=== PATIENT | male | born 1940 | race Caucasian/White ===

== ENCOUNTER 2018-01-28 11:38 | Inpatient (IN) ==
--- NOTE | 2018-01-26 17:19 | Discharge Summary ---
<Shaneka Dsouza - Last Filed: 01/26/18 17:17> Orders not resulted at time of discharge: Pending orders 01/28/18 10:20 XR knee RT limited 1-2V [XR] Routine H/H [Hemoglobin and Hematocrit] [HEME] Routine Date of Encounter: 01/26/18 - Discharge Diagnosis (1) Arthritis of knee, right Priority: Primary Status: Acute (2) Status post total knee replacement, right Priority: Primary Status: Acute - Hospital Course Hospital course: Mr. De León is a 77 year old male - Time Spent with Patient Total time spent providing and/or coordinating discharge services: - Discharge Medications Home Medications: Aspirin Enteric Coated [Aspirin EC] 325 mg PO BID #20 01/26/18 [Rx] OxyCODONE Immed Rel [Roxicodone 5 MG] 5 mg PO Q6HR PRN 7 Days #28 tablet [Rx] Aspirin 81 mg PO DAILY 01/28/18 [History] Dutasteride 0.5 mg PO DAILY 01/28/18 [History] Pantoprazole Sodium 40 mg PO DAILY 01/28/18 [History] Tamsulosin [Flomax] 0.4 mg PO DAILY 01/28/18 [History] Allergies/Adverse Reactions: 3 Allergy/AdvReac Type Severity Reaction Status Date / Time No Known Allergies Allergy Verified 01/28/18 12:04 Primary care physician: Herbie Garcia MD - Patient Status Disposition: Transfer Inpatient Rehab Fac Condition: Good - Discharge Instructions Follow Up With: Herbie Garcia MD [Primary Care Provider] - <Vishnu Brown - Last Filed: 01/30/18 08:08> Orders not resulted at time of discharge: Pending orders 01/28/18 10:20 XR knee RT limited 1-2V [XR] Routine H/H [Hemoglobin and Hematocrit] [HEME] Routine 01/28/18 13:07 EKG [ECG 12 lead ECG] [ECG] Stat Date of Encounter: 01/30/18 Time of Encounter: 08:08 - Discharge Diagnosis (1) Obesity (BMI 30.0-34.9) Priority: Secondary Status: Chronic (2) Status post total knee replacement, right Priority: Primary Status: Acute (3) Arthritis of knee, right Priority: Primary Status: Chronic (4) Kidney disease, chronic, stage II (mild, 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 De León is a 77 year old male Status post right total knee replacement The patient had an uneventful postoperative course. They received antibiotics and physical therapy and were discharged in stable condition. There will follow -up in the office in 2 weeks. - Time Spent with Patient Total time spent providing and/or coordinating discharge services: Primary care physician: Herbie Garcia MD - Patient Status Functional capacity at discharge: uses cane/walker Overall status at discharge: patient is progressing back to baseline
[2018-01-28] MEDS ORDERED: Famotidine 20 MG/2 ML VIAL IVP ONE (12:23)
[2018-01-28] MEDS ORDERED: Ringers Solution, Lactated 1,000 ML IVC SCH ×3 (12:30→16:36)
[2018-01-28] MEDS ORDERED: CeFAZolin Syr 2,000MG/20 ML 2,000 MG/20 ML SYRINGE IVPB ONE (12:38)
[2018-01-28] MEDS ORDERED: Lidocaine -MPF 1% 2 ML VIAL ID ONE (12:38)
--- NOTE | 2018-01-28 13:16 | History & Physical Report ---
Date of Encounter: 01/28/18 Time of Encounter: 13:16 24 Hour HP Update - Instructions Instructions: If the History and Physical is less than 30 days old and was completed prior to A.M. admission and or procedure and has NOT been updated on calendar day of procedure please complete this update prior to performing procedure. - Update Patient reports changes in Medical Condition: No Changes in examination, assessment, or condition: No Changes in Medication: No Preop tests/diagnostics Reviewed: Yes Surgery Remains Indicated: Yes Consent for Planned Operative Procedure(s) Verified: Yes - Pre-Operative Checklist Preoperative Checklist Indicated: No Prophylactic Antibiotic Ordered: Yes Is VTE Prophylaxis Indicated?: Yes
--- NOTE | 2018-01-28 13:37 | Anesthesia Evaluation PreOp ---
Date of Encounter: 01/28/18 Time of Encounter: 13:25 - Past History Planned Operation: Rt TKA Cardiac History: Denies any Significant Hx Pulmonary History: Denies Any Significant HX NAIL SETTER History: Denies Any Significant HX Other Medical History: Renal (CKD), Other (BPH) Anesthesia History: No Prior Anesthetic Complications Alcohol Use: rarely Drug use: none Medications and Allergies Aspirin Enteric Coated [Aspirin EC] 325 mg PO BID #20 01/26/18 [Rx] OxyCODONE Immed Rel [Roxicodone 5 MG] 5 mg PO Q6HR PRN 7 Days #28 tablet [Rx] Aspirin 81 mg PO DAILY 01/28/18 [History] Dutasteride 0.5 mg PO DAILY 01/28/18 [History] Pantoprazole Sodium 40 mg PO DAILY 01/28/18 [History] Tamsulosin [Flomax] 0.4 mg PO DAILY 01/28/18 [History] 3 Allergy/AdvReac Type Severity Reaction Status Date / Time No Known Allergies Allergy Verified 01/28/18 12:04 - Meds/Allergy Pre-op Review Medications Reviewed: Yes Allergies Reviewed: Yes Beta Blockers on Current Med List: No Anesthesia Results - Labs Laboratory Tests 01/22/18 01/22/18 14:25 14:25 Hgb 16.4 Hct 48.3 Plt Count 376 Sodium 135 L Potassium 4.2 BUN 23 Creatinine 1.32 H - Imaging EKG: report reviewed (SR) Anesthesia Exam O2 Sat Height 1.85 m Height 1.85 m Height 1.85 m Weight 116.12 kg Weight 116.12 kg Weight 116.12 kg O2 Sat by Pulse Oximetry 95 O2 Sat by Pulse Oximetry 95 Vital Signs Temp Pulse Resp BP Pulse Ox 97.8 F 73 18 140/88 95 01/28/18 11:56 01/28/18 11:56 01/28/18 11:56 01/28/18 11:56 01/28/18 11:56 Height: 6'1 Weight: 256 lbs NPO (# of Hours): MN Pain Scale: 0 - HEENT Pupil (Motor): Pupils equal, EOMI Mallampati: II Oral Opening: Greater than 3 - NAIL SETTER LOC: Oriented NAIL SETTER Motor: Normal RUE, Normal LUE, Normal RLE, Normal LLE, Normal Face NAIL SETTER Sensory: Normal: RUE, LUE, RLE, LLE, Face - Cardiac Rhythm: Regular Murmur: None JVD: No Carotid Bruit: No - Pulmonary Breath Sounds: bilateral Clear Respiratory Effort: Symmetrical Anesthesia Assess/Plan ASA Score: 2 Modified Whitney Scale for Level of Consciousness: Cooperative, oriented, and tranquil Anesthetic Plan: Regional, MAC Monitoring Plan: Standard Monitors Recovery Plan: PACU (Discussed SAB with Adductor Canal Block, possible GA, agrees to proceed)
[2018-01-28] MEDS ORDERED: *HR* Midazolam HCl 2 MG/2 ML VIAL ONE (13:49)
[2018-01-28] MEDS ORDERED: *HR* FentaNYL (PF) 100 MCG/2 ML VIAL ONE (13:49)
[2018-01-28] MEDS ORDERED: Lidocaine -MPF 2% 2 ML VIAL ONE (13:49)
[2018-01-28] MEDS ORDERED: ROPIVACAINE HCL/PF 0.5% 30 ML VIAL ONE (13:59)
[2018-01-28] MEDS ORDERED: Propofol 500 MG/50 ML INFUS..BTL ONE (14:14)
[2018-01-28] MEDS ORDERED: Ondansetron 4 MG/2 ML VIAL IVP ONE (14:25)
[2018-01-28] MEDS ORDERED: *HR* Meperidine 25 MG/ML SYRINGE IVP PRN (14:25)
[2018-01-28] MEDS ORDERED: *HR* OxyCODONE Immed Rel 5 MG TABLET PO PRN (14:25)
[2018-01-28] MEDS ORDERED: MORPHINE SUL Oral CONC 10 MG/0.5 ML ORAL.SYG SL PRN (14:25)
[2018-01-28] MEDS ORDERED: Naloxone 0.4 MG/ML INJ IVP PRN ×2 (14:25→16:36)
[2018-01-28] MEDS ORDERED: Albuterol 2.5 MG/3 ML NEBULIZER IH ONE (14:25)
--- NOTE | 2018-01-28 14:34 | Anesthesia Procedures ---
Date of Encounter: 01/28/18 Time of Encounter: 13:35 Procedures: Anesthesia - Epidural/Spinal Patient ID/Chart reviewed: Yes Patient examined: Yes Consent Obtained: Yes Supplemental Oxygen: Nasal Cannula (2) Sedation: Versed (mg): 2 Site Prep: Aseptic Technique, Sterile prep and drape Patient position: upright Local Anesthetic: Lidocaine 1% Interspace Used: L2-L3 Loss of Resistance (DICK): No Blood: No CSF: Yes Paresthesia: No Spinal Needle Gauge: 24 Spinal Dose: 10mg isobaric marcaine, 0.3mg duramorph Procedure: Patient sitting sterile P&D, midline L2-3 plus CSF, 24 gauge needle patient tolerated procedure well - Nerve Block Procedure Date: 01/28/18 Time: 14:00 Pre-op Diagnosis: Rt Knee OA Surgical Procedure: Rt TKA Checklist: Correct Patient Identifier Correct side: Right Blood Thinner: No Monitor Applied: EKG, BP, Pulse Oximetry Supplemental Oxygen via Nasal Cannula (L/min): 2 Sedation: Versed (mg): 2 Indication: Post Op Analgesia Pre-op Neuro Deficits: No Block Type: Other (Adductor Canal Block) Catheter placed: No Depth at skin (cm): 4 Sterile Technique: Yes Ultrasound used: Yes Anatomy identified: Yes Visual spread of Local: Yes Neuro Stimulation: No Smooth Injection of Local: Yes Pain with Injection of Local: No Prep: Chlorhexadine Needle: 21 x 100 mm Stimuplex Local: Ropivacaine Volume (cc): 30 Number of Attempts: 1 Complications: None/effective block Vitals: Vital Signs/O2 Sat/Glucose, Most Current Temp Pulse Resp BP Pulse Ox 01/28/18 14:15 58 16 121/72 94 01/28/18 14:10 64 14 121/74 96 01/28/18 14:05 67 12 118/73 96 01/28/18 14:00 66 15 118/73 97 01/28/18 13:50 62 14 161/92 96 01/28/18 12:57 97.8 F 73 18 140/88 95 01/28/18 11:56 97.8 F 73 18 140/88 95
--- NOTE | 2018-01-28 15:16 | Orthopedic Operative Note ---
Date of procedure: 01/28/18 Pre-op diagnosis: Right knee arthritis Post-op diagnosis: same Procedure: Procedure: Right robotic-assisted Total knee replacement Estimated blood loss: 200 cc Hardware: Metal and polyethylene replacement. [place] Femur: 6 Tibia: 6 TS insert: 9 Patella: 39 Exam Under anesthesia: 5 degrees hyperextension 5 degree varus as calculated by the robot full flexion and no instability Procedural Notes: Grade 3 arthritic changes undersurface of patella femoral condyle. Operative procedure: The patient was brought to the operating room and placed on the operating room table. After general anesthesia was administered the operative knee was examined. Findings were noted in the exam under anesthesia. The operative extremity was prepped and draped in sterile surgical fashion. The patient received IV antibiotics prior to skin incision. A standard midline incision was made centered over the patella. The incision was made through the skin and subcutaneous tissue. A medial parapatellar tendon approach was performed. Care was taken to preserve tissue along the medial aspect of the patella. And to protect the patella tendon. The deep MCL was released off the medial tibia. The infra patella fat pad was excised. The patella was everted and cut was made at the level of the insertion of the quadriceps and patella tendon. The patella was sized the guide was seated and the lug holes are drilled. Knee was brought into flexion. Patient noted to have grade 3 arthritic changes undersurface of patella medial femoral condyle. Steinmann pins were placed in the tibia and the femur for the tibial and femoral arrays respectively. Checkpoints were also placed in the tibia and the femur for calculation purposes. The knee including the femur and the tibial registered. Osteophytes , ACL and PCL were excised at this point. Extension and flexion were assessed with a valgus stress components were adjusted on the computer to balance the knee. Femoral cuts were made first with robotic assistance, these included the anterior cut posterior cuts chamfer cuts. Tibial cut was then performed with robotic assistance as well. Bone fragments were removed, as well as the medial and lateral meniscus. The size 6 femoral guide was seated box cut was made lug holes are drilled. The size 6 tibial tray was seated and prepared with the fin cutter. Trial reduction with the 9 TS Justyna revealed extension of 0 degree and 5 degree varus full flexion. No varus valgus instability. Trial reduction revealed excellent patella tracking. All trial components were removed all bony surfaces were irrigated. The Tibia was seated followed by the femur, The Justyna size 9 was seated and secured patella. Patient had similar findings for motion and stability. The knee was closed by the PA. The knee was then irrigated out with 2 L of pulse irrigation. The extensor mechanism was closed with #2 FiberWire suture and #2 PDS suture. The subcutaneous tissue was then irrigated and closed deep with #1 PDS suture superficially with 0 PDS suture and skin was closed with zip tie The patient was then placed in a sterile dressing and a postoperative brace extubated and transferred to recovery room in stable condition. Anesthesia: spinal Surgeon: Vishnu Brown Was there an optometry assistant present: No Estimated blood loss (cc): 200 Condition: stable Disposition: PACU
[2018-01-28 16:10] LABS: Hematocrit 44.5 % (37.5-50.1)
[2018-01-28 16:13] LABS: Hemoglobin 14.8 g/dL (12.9-16.9)
[2018-01-28] MEDS ORDERED: traMADol 50 MG TABLET PO PRN (16:36)
[2018-01-28] MEDS ORDERED: MOM Conc 10 ML UD.LIQ PO PRN (16:36)
[2018-01-28] MEDS ORDERED: CeFAZolin Pre 2,000 MG/100 ML 2,000 MG/100 ML BAG IVPB SCH (16:36)
[2018-01-28] MEDS ORDERED: Temazepam 15 MG CAPSULE PO PRN (16:36)
[2018-01-28] MEDS ORDERED: Sennosides 8.6 MG TABLET PO PRN (16:36)
[2018-01-28] MEDS ORDERED: Ondansetron 4 MG/2 ML VIAL IVP PRN (16:36)
--- NOTE | 2018-01-28 16:49 | Anesthesia Evaluation Post Op ---
Date of Encounter: 01/28/18 Time of Encounter: 16:30 - Vital Signs Vital Signs: Vital Signs/O2 Sat/Glucose, Most Current Temp Pulse Resp BP Pulse Ox 01/28/18 16:30 97.2 F L 51 14 116/83 94 01/28/18 16:20 97.2 F L 51 15 115/60 95 01/28/18 16:10 56 15 132/78 94 01/28/18 16:00 55 15 127/83 94 01/28/18 15:50 97.2 F L 62 14 116/72 92 01/28/18 14:15 58 16 121/72 94 01/28/18 14:10 64 14 121/74 96 01/28/18 14:05 67 12 118/73 96 01/28/18 14:00 66 15 118/73 97 01/28/18 13:50 62 14 161/92 96 01/28/18 12:57 97.8 F 73 18 140/88 95 - Lungs Lungs: Clear Ascult./Percussion - Airway Airway: Non-obstructed - Cardiovascular Regular Rate - Mental Status Mental Status: Alert & Oriented, Answers Appropriately - Pain Pain Scale: 0 - Nausea Vomiting Nausea Vomiting: Not Present - Hydration Hydration: Ice chips - Discharge PostOp Status: Transfer Patient to floor
[2018-01-28] MEDS ORDERED: *HR* Enoxaparin 30 MG/0.3 ML SYRINGE SQ SCH (18:00)
[2018-01-28] MEDS: *HR* Enoxaparin 30 MG/0.3 ML SYRINGE SQ SCH (18:38)
[2018-01-28] MEDS: *HR* OxyCODONE/APAP 5/325 TABLET PO PRN (19:35)
[2018-01-28] MEDS: CeFAZolin Pre 2,000 MG/100 ML 2,000 MG/100 ML BAG IVPB SCH (21:34)
[2018-01-28] MEDS: *HR* Promethazine 25 MG/ML VIAL IVP PRN (23:55)
[2018-01-29] MEDS: *HR* Promethazine 25 MG/ML VIAL IVP PRN (06:02)
[2018-01-29] MEDS: CeFAZolin Pre 2,000 MG/100 ML 2,000 MG/100 ML BAG IVPB SCH (06:06)
[2018-01-29] MEDS: *HR* Enoxaparin 30 MG/0.3 ML SYRINGE SQ SCH ×2 (06:06→17:10)
[2018-01-29 06:20] LABS: Calcium 9.4 mg/dL (8.6-10.3); Potassium 5.2 mEq/L (3.5-5.1)
[2018-01-29 06:26] LABS: Hematocrit 46.4 % (37.5-50.1); Hemoglobin 15.3 g/dL (12.9-16.9)
[2018-01-29] MEDS: Aspirin 81 MG TAB.CHEW PO SCH (07:52)
[2018-01-29] MEDS: Finasteride 5 MG TABLET PO SCH (07:52)
--- NOTE | 2018-01-29 07:57 | Orthopedics Progress Note ---
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 Afebrile vital signs stable. Operative extremity: Neurovascularly intact Dressing clean dry and intact Calves nontender Assessment and plan: Continue with postoperative care Hematocrit 46 Objective Vital signs: Vital Signs Temp Pulse Resp BP Pulse Ox 01/29/18 07:00 98 F 79 16 134/87 96 01/29/18 03:00 97.5 F L 77 16 130/89 93 01/29/18 00:02 97.9 F 62 16 137/83 93 01/28/18 19:48 94 01/28/18 19:34 97.9 F 58 17 131/77 94 01/28/18 16:43 97.9 F 56 18 120/77 96 01/28/18 16:30 97.2 F L 51 14 116/83 94 01/28/18 16:20 97.2 F L 51 15 115/60 95 01/28/18 16:10 56 15 132/78 94 01/28/18 16:00 55 15 127/83 94 01/28/18 15:50 97.2 F L 62 14 116/72 92 01/28/18 14:15 58 16 121/72 94 01/28/18 14:10 64 14 121/74 96 01/28/18 14:05 67 12 118/73 96 01/28/18 14:00 66 15 118/73 97 01/28/18 13:50 62 14 161/92 96 01/28/18 12:57 97.8 F 73 18 140/88 95 01/28/18 11:56 97.8 F 73 18 140/88 95 Intake and Output 01/28/18 01/28/18 01/29/18 15:59 23:59 07:59 Intake Total 100 / 100 300 / 300 Output Total 100 / 100 800 / 800 Balance -100 / -100 100 / 100 -500 / -500 Intake: IV Fluids 100 / 100 Ancef Premix 2,000 MG/100 ML 2, 100 / 100 000 mg In 100 ml @ 200 mls/hr IVPB Q8H ON LICENSE OF [facility] Rx#:[id number] Oral 300 / 300 Output: Estimated Blood Loss 100 / 100 Straight Cath 800 / 800 Other: Weight 116.12 kg - Labs CBC & BMP: 01/29/18 01:55 01/29/18 01:55 Labs: Abnormal lab results Potassium 5.2 mEq/L (3.5-5.1) H 01/29/18 01:55 Creatinine 1.40 mg/dL (0.70-1.30) H 01/29/18 01:55 Est GFR (Non-Af Amer) 49 (> 60) L 01/29/18 01:55 Glucose 133 mg/dL (70-105) H 01/29/18 01:55 - VTE Documentation of Mechanical Device: Venous foot pump, device Consult Discharge Plan - Plan Referrals: Herbie Garcia MD [Primary Care Provider] -
--- NOTE | 2018-01-29 12:20 | Event Note ---
Date of Encounter: 01/29/18 Time of Encounter: 12:19 PCR - POD#1 - Right TKR. Patient seen at bedside. Labs reviewed. Pain control: adequate Participating in PT. All questions and concerns addressed. Educated on use of incentive spirometer. Encouraged ambulation and proper hydration. Patient educated on post-operative restrictions and post-operative care. Addressed: ECF Discharge plan: ECF
--- NOTE | 2018-01-29 12:22 | Physician Discharge Referral ---
ExtendedCare Referral Info Transfer To: [facility] Provider in Charge: - Diagnosis (1) Arthritis of knee, right Priority: Primary Status: Chronic (2) Status post total knee replacement, right Priority: Primary Status: Acute Expected Duration of Placement: < 30 days Prognosis: Good Aware of Diagnosis: Patient Aware of Prognosis: Patient - Transfer Medications Home Medications: Aspirin Enteric Coated [Aspirin EC] 325 mg PO BID #20 01/26/18 [Rx] OxyCODONE Immed Rel [Roxicodone 5 MG] 5 mg PO Q6HR PRN 7 Days #28 tablet [Rx] Aspirin 81 mg PO DAILY 01/28/18 [History] Dutasteride 0.5 mg PO DAILY 01/28/18 [History] Pantoprazole Sodium 40 mg PO DAILY 01/28/18 [History] Tamsulosin [Flomax] 0.4 mg PO DAILY 01/28/18 [History] Allergies/Adverse Reactions: 3 Allergy/AdvReac Type Severity Reaction Status Date / Time No Known Allergies Allergy Verified 01/28/18 12:04 - Respiratory Orders None Smoking Cessation: Smoking cessation has been advised. For more information, call the [place] Tobacco Quit Line at 0-690-BUYL-NOW. - Mobility Orders Chair, Ambulate - Rehabiliation Orders Rehab Potential: Good Rehab Orders: Sternal Precautions, Evaluation for Physical Therapy, Evaluation for Occupational Therapy - Diet Orders Regular CERTIFICATION: I certify that the transfer of the above named patient to an Extended Care Facility is necessary for the continuing treatment of the diagnosis listed. The above information is true and accurate reflection of patient's current condition. Confidential - Redisclosure prohibited without a patient's written consent.
--- NOTE | 2018-01-29 13:27 | Electrocardiograph Report ---
[place] [facility] Test Date: 2018-01-28 Pat Name: Brady De León Department: [id number] Room: [facility] Gender: M Skilled Nursing Facility Counselor: SWS : 1940 Requested By: Brady Londono Order Number: [id number] Reading MD: Ted Haines MD Measurements Intervals [place] Rate: 62 P: 51 CT: 182 QRS: -13 QRSD: 85 T: 59 QT: 393 QTc: 398 Interpretive Statements SINUS RHYTHM WITH MARKED SINUS ARRHYTHMIA INFERIOR MYOCARDIAL INFARCTION, PROBABLY OLD Electronically Signed On 01-29-2018 13:25:46 EDT by Ted Haines MD
[2018-01-29] MEDS: *HR* OxyCODONE/APAP 5/325 TABLET PO PRN (13:45)
[2018-01-29] MEDS: *HR* OxyCODONE Immed Rel 5 MG TABLET PO PRN (20:01)
[2018-01-30] MEDS: *HR* OxyCODONE Immed Rel 5 MG TABLET PO PRN ×5 (00:08→17:05)
[2018-01-30 01:59] LABS: Hematocrit 40.1 % (37.5-50.1); Hemoglobin 13.5 g/dL (12.9-16.9)
[2018-01-30 02:13] LABS: BUN/Creatinine Ratio 16 (6-26); Blood Urea Nitrogen 20 mg/dL (8-23); Calcium 8.9 mg/dL (8.6-10.3); Carbon Dioxide 27 mEq/L (23-29); Chloride 101 mEq/L (98-107); Glucose 125 mg/dL (70-105); Osmolality,Calculated 278 (280-300); Potassium 4.2 mEq/L (3.5-5.1); Sodium 132 mEq/L (136-145); eGFR For African Americans > 60 (> 60); eGFR For Non-African Americans 55 (> 60)
[2018-01-30] MEDS: *HR* Enoxaparin 30 MG/0.3 ML SYRINGE SQ SCH ×2 (04:44→17:06)
[2018-01-30] MEDS: Aspirin 81 MG TAB.CHEW PO SCH (08:01)
[2018-01-30] MEDS: Finasteride 5 MG TABLET PO SCH (08:01)
--- NOTE | 2018-01-30 08:09 | Orthopedics Progress Note ---
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 Afebrile vital signs stable. Operative extremity: Neurovascularly intact Dressing clean dry and intact Calves nontender Assessment and plan: Continue with postoperative care Discharged today Objective Vital signs: Vital Signs Temp Pulse Resp BP Pulse Ox 01/30/18 07:01 98.5 F 68 16 154/79 95 01/30/18 00:17 98.8 F 63 16 160/79 93 01/29/18 20:10 98.0 F 53 14 153/74 95 01/29/18 09:56 98.3 F 84 16 138/76 96 Intake and Output 01/29/18 01/30/18 01/30/18 23:59 07:59 15:59 Intake Total 100 / 100 300 / 300 Output Total 800 / 800 400 / 400 Balance -700 / -700 -100 / -100 Intake: IV Fluids 100 / 100 Oral 100 / 100 200 / 200 Output: Urine 800 / 800 400 / 400 - Labs CBC & BMP: 01/30/18 01:20 01/30/18 01:20 Labs: Abnormal lab results Sodium 132 mEq/L (136-145) L 01/30/18 01:20 Est GFR (Non-Af Amer) 55 (> 60) L 01/30/18 01:20 Glucose 125 mg/dL (70-105) H 01/30/18 01:20 Calculated Osmolality 278 (280-300) L 01/30/18 01:20 - VTE Documentation of Mechanical Device: Venous foot pump, device Consult Discharge Plan - Plan Referrals: Herbie Garcia MD [Primary Care Provider] -
--- NOTE | 2018-01-30 12:52 | Event Note ---
Date of Encounter: 01/30/18 Time of Encounter: 12:52 PCR - POD#2 - Right TKR. Requiring straight cath, unable to void on his own. Continue with bladder scan, and close monitoring - improved since 01/29. Renal function improved. Patient seen at bedside. Labs reviewed. Pain control: adequate Participating in PT. All questions and concerns addressed. Educated on use of incentive spirometer. Encouraged ambulation and proper hydration. Patient educated on post-operative restrictions and post-operative care. Addressed: ECF Discharge plan: ECF, waiting for auth - today or Friday
[2018-01-30 15:50] VITALS: BP 154/81
== END 2018-01-30 18:40 | DRG 470 ==
LOC: SAMDAY 11:38 → 3NENU 16:35
PROVIDERS: ADMIT Orthopaedic Surgery; ATTEND Orthopaedic Surgery